=== PATIENT | female | born 1990 | race Caucasian/White ===

== ENCOUNTER → 2023-08-20 | Outpatient (CLI) | payer BC ==
--- NOTE | 2023-08-20 16:39 | Diagnostic Imaging Report ---
EXAMINATION: US Thyroid. TECHNIQUE: Multiple real-time grayscale images were obtained of the thyroid in various projections. HISTORY: Difficulty swallowing. COMPARISON: None available. FINDINGS: The right lobe of the thyroid measures 4.9 x 1.7 x 1.3 cm. The left lobe of the thyroid measures 5.0 x 1.9 x 1.0 cm. The isthmus measures 0.2 cm. The size and echogenicity of the thyroid is normal. There are no nodules. IMPRESSION: 1. Normal thyroid gland. Dictated by: Dictated on workstation # [id number]
== END ==
LOC: RAD 14:51
PROVIDERS: ATTEND Nurse Practitioner Family
DX: R13.12 Dysphagia, oropharyngeal phase (principal); E55.9 Vitamin D deficiency, unspecified; R53.83 Other fatigue; K59.09 Other constipation; Z80.8 Family history of malignant neoplasm of other organs or systems
CPT/HCPCS: 76536

== ENCOUNTER 2023-08-30 05:28 | Outpatient (CLI) | payer BC ==
[~2023-08-30] VITALS: Ht 170.2 cm; Wt 95.5 kg
[2023-08-31] MEDS ORDERED: CYAN250010 PO (10:44)
[2023-08-31] MEDS ORDERED: PNV#1COM14 PO (10:44)
[2023-08-31] MEDS ORDERED: DOCU-143 PO (10:44)
[2023-08-31] MEDS ORDERED: CHOL200052 PO (10:44)
[2023-08-31] MEDS ORDERED: POLY17PO6 PO (10:44)
[2023-08-31] MEDS ORDERED: BUPR300T98 PO (10:44)
== END 2023-08-31 11:15 | disposition home or self-care (01) ==
LOC: PREOP 05:28
PROVIDERS: ATTEND Obstetrics & Gynecology
DX: Z01.818 Encounter for other preprocedural examination (principal)